=== PATIENT | male | born 1990 | race Caucasian/White ===

== ENCOUNTER 2018-09-29 12:12 | Emergency (ER) | payer BC ==
[2018-09-29] MEDS ORDERED: NS 0.9% 1000 ML** 1,000 ML IV ONE (12:28)
[2018-09-29 12:52] LABS: ABS Eosinophils 0.3 10^3/ul (0-0.6); ABS Lymphocytes 1.7 10^3/ul (1.0-4.8); ABS Monocytes 0.4 10^3/ul (0-0.8); ABS Neutrophils 4.5 10^3/ul (1.5-7.7); Eosinophil % 4.8 %; Hematocrit 46 % (42-52); Hemoglobin 16.2 g/dL (14.0-18.0); Lymphocyte % 24.4 %; Mean Corpuscular HGB Conc 36 g/dL (31-36); Mean Corpuscular Hemoglobin 32 pg (27-31); Mean Corpuscular Volume 91 fL (80-94); Mean Platelet Volume 7.4 fL (7.4-10.4); Platelet Count 275 10^3/uL (150-450); Red Cell Distribution Width 13 % (10-15)
--- NOTE | 2018-09-29 12:59 | ED ---
Substance Abuse/Use - HPI Summary HPI Summary: 28 year old M presenting to [facility] with a chief complaint of blurred vision, light headedness, diaphoresis a few hours ago this morning after injecting cocaine and meth in both arms, drinking alcohol and 2 bottles of dextromethorphan last night. The patient rates the pain 0/10 in severity. Symptoms aggravated by nothing. Symptoms alleviated by nothing. Patient reports swelling in right elbow. Patient denies right arm pain. Patient states his arm usually bruises after injecting drugs. Last night, patient states that the injection was shallow. Patient has Hx substance abuse. He states that he has injected a few times over the last few months but before then, he had been sober for a few years. Patient states he used to inject drugs very often. Patient s now taking Suboxone. Patient states he has access to resources in the community. - History Of Current Complaint Chief Complaint: EDOverdose Stated Complaint: MIGHT HAVE BLOOD CLOT LT ARM PER PT Time Seen by Provider: 09/29/18 12:28 Hx Obtained From: Patient Ingestion History: Type/Name Of Drug - coke, meth, dextromethorphan, alcohol Severity Currently: None Aggravating Factor(s): Nothing Alleviating Factor(s): Nothing Associated Signs And Symptoms: Negative - right arm pain, Diaphoretic, Other: - right elbow swelling - Allergies/Home Medications Allergies/Adverse Reactions: Allergies Allergy/AdvReac Type Severity Reaction Status Date / Time No Known Allergies Allergy Unverified 10/05/12 15:54 Home Medications: Home Medications Buprenorphine HCl/Naloxone HCl [Buprenorp-Nalox 8-2 mg Sl Film] 1.5 film SL DAILY 09/29/18 [History Confirmed 09/29/18] Dextroamphetamine (NF) TAB [Dexedrine TAB*] 10 mg PO DAILY 09/29/18 [History Confirmed 09/29/18] Gabapentin CAP(*) [Neurontin 300 CAP(*)] 300 mg PO TID 09/29/18 [History Confirmed 09/29/18] Lisdexamfetamine Dimesylate [Vyvanse] 30 mg PO DAILY 09/29/18 [History Confirmed 09/29/18] Propranolol TAB* [Inderal TAB*] 10 mg PO BID 09/29/18 [History Confirmed ] PMH/Surg Hx/FS Hx/Imm Hx Endocrine/Hematology History: Denies: Hx Diabetes, Hx Thyroid Disease Cardiovascular History: Denies: Hx Hypertension Respiratory History: Denies: Hx Asthma, Hx Chronic Obstructive Pulmonary Disease (COPD) GI History: Denies: Hx Ulcer History: Denies: Hx Kidney Stones Psychiatric History: Reports: Hx Depression, Hx Substance Abuse - Surgical History Surgery Procedure, Year, and Place: none Infectious Disease History: No Infectious Disease History: Denies: Hx Hepatitis, Hx Human Immunodeficiency Virus (HIV), Traveled Outside the [place] in Last 30 Days - Family History Known Family History: Negative: Blood Disorder - Social History Alcohol Use: None Hx Substance Use: Yes Substance Use Type: Reports: Cocaine Substance Use Comment - Amount & Last Used: dextromethorphan, meth Hx Tobacco Use: Yes Smoking Status (MU): Heavy Every Day Tobacco Smoker Review of Systems Positive: Skin Diaphoresis Positive: Blurred Vision Musculoskeletal: Negative - right arm pain Positive: Other - right elbow swelling Neurological: Other - light headedness Positive: Other - injecting cocaine and meth in both arms, drinking alcohol and 2 bottles of dextromethorphan All Other Systems Reviewed And Are Negative: Yes Physical Exam - Summary Physical Exam Summary: Constitutional: Well-developed, Well-nourished, Alert. (-) Distressed Skin: Diaphoretic, He has track foreman on his bilateral upper extremities and an area of swelling without erythema on his right medial elbow HENT: Normocephalic; Atraumatic Eyes: Conjunctiva normal Neck: Musculoskeletal ROM normal neck. (-) JVD, (-) Stridor Cardio: Rhythm regular, rate normal, Heart sounds normal; Intact distal pulses; Radial pulses are 2+ and symmetric. (-) Murmur Pulmonary/Chest wall: Effort normal. (-) Respiratory distress, (-) Wheezes, (-) Rales Abd: Soft, (-) tenderness, (-) Distension, (-) Guarding, (-) Rebound Musculoskeletal: (-) Edema Lymph: (-) Cervical adenopathy Neuro: Alert, Oriented x3 Psych: Mood and affect Normal Triage Information Reviewed: Yes Vital Signs On Initial Exam: Initial Vitals Temp Pulse Resp BP Pulse Ox 98 F 98 22 118/81 88 09/29/18 12:16 09/29/18 12:16 09/29/18 12:16 09/29/18 12:16 09/29/18 12:16 Vital Signs Reviewed: Yes Diagnostics - Vital Signs Vital Signs Temp Pulse Resp BP Pulse Ox 09/29/18 12:52 87 10 135/71 100 09/29/18 12:33 93 8 129/86 99 09/29/18 12:22 98 118/81 95 09/29/18 12:16 98 F 98 22 118/81 88 - Laboratory Lab Results: Lab Results 09/29/18 Range/Units 12:36 WBC 7.0 (3.5-10.8) 10^3/uL RBC 5.00 (4.18-5.48) 10^6 /uL Hgb 16.2 (14.0-18.0) g/dL Hct 46 (42-52) % MCV 91 (80-94) fL MCH 32 H (27-31) pg MCHC 36 (31-36) g/dL RDW 13 (10-15) % Plt Count 275 (150-450) 10^3/uL MPV 7.4 (7.4-10.4) fL Neut % (Auto) 64.1 % Lymph % (Auto) 24.4 % [place] % (Auto) 6.4 % Eos % (Auto) 4.8 % Baso % (Auto) 0.3 % Absolute Neuts (auto) 4.5 (1.5-7.7) 10^3/ul Absolute Lymphs (auto) 1.7 (1.0-4.8) 10^3/ul Absolute Monos (auto) 0.4 (0-0.8) 10^3/ul Absolute Eos (auto) 0.3 (0-0.6) 10^3/ul Absolute Basos (auto) 0.0 (0-0.2) 10^3/ul Absolute Nucleated RBC 0.0 10^3/ul Nucleated RBC % 0.0 Result Diagrams: 09/29/18 12:36 09/29/18 12:36 Lab Statement: Any lab studies that have been ordered have been reviewed, and results considered in the medical decision making process. - EKG 1229 Cardiac Rate: NL - 94 BPM EKG Rhythm: Sinus Rhythm Summary of EKG Findings: An EKG at 12:29 reveals normal sinus rhythm 94 BPM, nml axis, nml intervals. No STEMI. No acute changes. Course/Dx - Course Course Of Treatment: 28 y/o male w substance use d/o p/w ingestion. - VSS NAD, diaphoretic on arrival. - PE with mild swelling near injection site distal to R elbow but no erythema or fluctuance. Patient states he thinks he missed the vein 2/2 shallow injection. does not appear infected at this time, given return precautions for cellulitis/abscess. - labs unremarkable, feels better after IVF. - ambulated, no e/o intoxication on discharge - Diagnoses Provider Diagnoses: Substance use disorder Discharge - Sign-Out/Discharge Documenting (check all that apply): Patient Departure - Discharge Patient Received Moderate/Deep Sedation with Procedure: No - Discharge Plan Condition: Stable Disposition: HOME Patient Education Materials: Polysubstance Abuse (ED) Referrals: Filipe Boss MD [Primary Care Provider] - 2 Days Additional Instructions: Follow up with your primary care provider in 2 days. Return to the Emergency Department for new or worsening symptoms such as redness and/or swelling of your right elbow, and/or drainage and/or pus. - Billing Disposition and Condition Condition: STABLE Disposition: Home - Attestation Statements Document Initiated by Scribe: Yes Documenting Scribe: Johana Kidd Provider For Whom Scribe is Documenting (Include Credential): Jessica Casanova MD Scribe Attestation: IJohana, scribed for Jessica Casanova MD on 09/29/18 at 1408. Scribe Documentation Reviewed: Yes Provider Attestation: The documentation as recorded by the scribeJohana accurately reflects the service I personally performed and the decisions made by Jessica adan MD Status of Scribe Document: Viewed
[2018-09-29 13:05] LABS: ALT 15 U/L (7-52); AST 22 U/L (13-39); Albumin 5.4 g/dL (3.2-5.2); Albumin/Globulin Ratio 1.9 (1-3); Alkaline Phosphatase 95 U/L (34-104); Anion Gap 11 mmol/L (2-11); BUN/Creatinine Ratio 14.4 (8-20); Blood Urea Nitrogen 16 mg/dL (6-24); CO2 Carbon Dioxide 27 mmol/L (22-32); Calcium 10.4 mg/dL (8.6-10.3); Chloride 101 mmol/L (101-111); EGFR African American 96.9 (>60); EGFR Non-African American 80.1 (>60); Globulin 2.8 g/dL (2-4); Glucose 136 mg/dL (70-100); Potassium 3.6 mmol/L (3.5-5.0); Sodium 139 mmol/L (135-145); Total Protein 8.2 g/dL (6.4-8.9)
[2018-09-29 13:33] LABS: Acetaminophen < 15 mcg/mL; Alcohol < 10 mg/dL (<10); Salicylate < 2.50 mg/dL (<30)
[2018-09-29 14:04] VITALS: BP 126/91
== END 2018-09-29 14:04 | disposition home or self-care (01) ==
LOC: ED 12:12
DX: F19.10 Other psychoactive substance abuse, uncomplicated (principal); F17.210 Nicotine dependence, cigarettes, uncomplicated; Z79.899 Other long term (current) drug therapy
CPT/HCPCS: 36415; 80053; 80320; 80329; 85025; 93005; 96360; 99283; G0480

== ENCOUNTER 2019-02-08 04:35 | Emergency (ER) | payer BC ==
--- NOTE | 2019-02-08 05:09 | ED ---
HPI Chest Pain - HPI Summary HPI Summary: The patient is a 28 y/o M presenting to [facility] with a chief complaint of left- sided CP onset at 0200 this morning after driving home from a friends house. He reports that he was at a friends house yesterday doing yard work and afterwards he had a slight discomfort in the chest that lasted for approximately a minute. He left his friends house around 0100 this morning and had another episode of CP described as a left-sided squeezing as if there was a hand squeezing his heart. This pain radiated into the neck and lasted for almost an hour until taking Aspirin and Propranolol. He states left arm numbness and tingling. He is not currently in any pain. He drank alcohol on and felt hungover yesterday morning. He endorses anxiety. PMHx: anxiety, depression, substance abuse. Heavy every day smoker, no EtOH, history of polysubstance abuse with Vyvanse last used a few days ago. Medications reviewed. Allergies noted. - History of Current Complaint Chief Complaint: EDChestPainROMI Time Seen by Provider: 02/08/19 04:58 Hx Obtained From: Patient Onset/Duration: Started Hours Ago - 0200, Still Present Timing: Lasting Minutes Initial Severity: Moderate Current Severity: None Pain Intensity: 0 Pain Scale Used: 0-10 Numeric Chest Pain Location: Left Anterior Chest Pain Radiates: Yes Chest Pain Radiates To:: Neck Character: Pressure/Squeezing Aggravating Factor(s): Nothing Alleviating Factor(s): Other: - ASA, Propanolol Associated Signs and Symptoms: Positive: Chest Pain - radiating into neck, Anxiety, Numbness - left arm - Allergy/Home Medications Allergies/Adverse Reactions: Allergies Allergy/AdvReac Type Severity Reaction Status Date / Time No Known Allergies Allergy Unverified 02/08/19 04:43 PMH/Surg Hx/FS Hx/Imm Hx Endocrine/Hematology History: Denies: Hx Diabetes, Hx Thyroid Disease Cardiovascular History: Denies: Hx Hypertension Respiratory History: Denies: Hx Asthma, Hx Chronic Obstructive Pulmonary Disease (COPD) GI History: Denies: Hx Ulcer History: Denies: Hx Kidney Stones Psychiatric History: Reports: Hx Anxiety, Hx Depression, Hx Substance Abuse - Surgical History Surgical History: None Surgery Procedure, Year, and Place: none Infectious Disease History: No Infectious Disease History: Denies: Hx Hepatitis, Hx Human Immunodeficiency Virus (HIV), Traveled Outside the [place] in Last 30 Days - Family History Known Family History: Negative: Diabetes, Blood Disorder - Social History Alcohol Use: None Hx Substance Use: Yes Substance Use Type: Reports: Cocaine, Other - dextromethorphan, meth Substance Use Comment - Amount & Last Used: Vivance last used a few days ago Hx Tobacco Use: Yes Smoking Status (MU): Heavy Every Day Tobacco Smoker Review of Systems Positive: Chest Pain - left anterior squeeze "hand clenched" Positive: Other - neck pain radiating from chest Positive: Numbness - left arm Positive: Anxious All Other Systems Reviewed And Are Negative: Yes Physical Exam - Summary Physical Exam Summary: Appearance: Well-appearing, Well-nourished, lying in bed comfortably Skin: Warm, dry, no obvious rash Eyes: sclera anicteric, no conjunctival pallor ENT: mucous membranes moist, pharynx appears normal Neck: Supple, nontender Respiratory: Clear to auscultation, no signs of respiratory distress Cardiovascular: Normal S1, S2. No murmurs. Normal distal pulses in tibial and radial bilaterally. Abdomen: Soft, nontender, normal active bowel sounds present Musculoskeletal: Normal, Strength/ROM Intact Neurological: A&Ox3, awake and alert, mentation is normal, speech is fluent and appropriate Psychiatric: affect is normal, does not appear anxious or depressed Triage Information Reviewed: Yes Vital Signs On Initial Exam: Initial Vitals Temp Pulse Resp BP Pulse Ox 97.7 F 87 15 157/102 99 02/08/19 04:41 02/08/19 04:41 02/08/19 04:41 02/08/19 04:41 02/08/19 04:41 Vital Signs Reviewed: Yes Procedures - Sedation Patient Received Moderate/Deep Sedation with Procedure: No Diagnostics - Vital Signs Vital Signs Temp Pulse Resp BP Pulse Ox 02/08/19 04:41 97.7 F 87 15 157/102 99 - Laboratory Lab Statement: Any lab studies that have been ordered have been reviewed, and results considered in the medical decision making process. - EKG 0438 Cardiac Rate: NL - 60 BPM EKG Rhythm: Sinus Rhythm Summary of EKG Findings: NSR at 60 BPM, P waves, QRS complex, and T waves are within normal limits, T waves and intervals are normal, no ischemic changes. This is a normal EKG. ED physician has reviewed and interpreted this EKG. Chest Pain Course/Dx - Course Course Of Treatment: Patient is a 28 y/o M with chief complaint of a mild episode of chest discomfort yesterday afternoon and a more severe episode this morning around 0200 in the left anterior chest described as a squeezing sensation. Relieved with Aspirin and Propranolol. Physical exam is negative for acute abnormalities. EKG at 0438 reveals NSR at 60 BPM without acute changes. I do not suspect that the chest pain is of cardiac origin since he also states anxiety at this time and also chronically. We discussed all findings and plan for discharge. He understands and agrees with this plan. Dx of noncardiac chest pain. - Diagnoses Provider Diagnoses: Non-cardiac chest pain Discharge ED - Sign-Out/Discharge Documenting (check all that apply): Patient Departure - Patient will be discharged home. - Discharge Plan Condition: Good Disposition: HOME Patient Education Materials: Noncardiac Chest Pain (ED) Forms: *Work Release Referrals: Filipe Boss MD [Primary Care Provider] - If Needed - Billing Disposition and Condition Condition: GOOD Disposition: Home - Attestation Statements Document Initiated by Kathryn: Yes Documenting Scribe: Kerri Kevin Provider For Whom Kathryn is Documenting (Include Credential): Dr. Groan Romero MD Scribe Attestation: Kerri Campos scribed for Dr. Goran Romero MD on 02/08/19 at 0558. Scribe Documentation Reviewed: Yes Provider Attestation: The documentation as recorded by the Kerri vázquez accurately reflects the service I personally performed and the decisions made by me, Dr. Goran Romero MD Status of Scribe Document: Viewed
[2019-02-08 05:19] VITALS: BP 136/90
== END 2019-02-08 05:15 | disposition home or self-care (01) ==
LOC: ED 04:35
DX: R07.89 Other chest pain (principal); F41.9 Anxiety disorder, unspecified; F32.9 Major depressive disorder, single episode, unspecified; F17.200 Nicotine dependence, unspecified, uncomplicated
CPT/HCPCS: 93005; 99282

== ENCOUNTER 2019-05-20 08:17 | Emergency (ER) | payer BC ==
[2019-05-20 08:52] VITALS: BP 138/81
--- NOTE | 2019-05-20 09:01 | UC ---
Cardiac HPI - HPI Summary HPI Summary: 28-year-old male comes in with chief complaint of left-sided chest pain. He woke this morning feeling pressure in the left side of his chest going into his left neck. Denies any shortness of breath with it or nausea. No fevers or chills. The last time he used IV drugs was approximately 2 weeks ago. Patient reports she's had symptoms like this in the past and gets better with aspirin. He did take aspirin today and his symptoms have improved. Said his left neck felt swollen. Denied any crepitus and he pushed on it. Yesterday he was able to exercise vigorously without any chest pain or shortness of breath. - History of Current Complaint Chief Complaint: UCChestPain Stated Complaint: CHEST PRESSURE,NECK SWELLING Time Seen by Provider: 05/20/19 08:36 Pain Intensity: 4 - Allergy/Home Medications Allergies/Adverse Reactions: Allergies Allergy/AdvReac Type Severity Reaction Status Date / Time No Known Allergies Allergy Unverified 05/20/19 08:44 Home Medications: Home Medications Buprenorphine HCl/Naloxone HCl [Buprenorp-Nalox 8-2 mg Sl Film] 1.5 film SL DAILY 09/29/18 [History Confirmed 05/20/19] LORazepam TAB(*) [Ativan 1 MG TAB (*)] 1 tab PO BID 05/20/19 [History Confirmed 05/20/19] PMH/Surg Hx/FS Hx/Imm Hx Previously Healthy: Yes - IV drug user - Surgical History Surgical History: None Surgery Procedure, Year, and Place: none - Family History Known Family History: Negative: Diabetes, Blood Disorder - Social History Alcohol Use: None Substance Use Type: Cocaine, Synthetic Drugs, Prescribed, Sedatives, Other Substance Use Comment - Amount & Last Used: Meth Smoking Status (MU): Heavy Every Day Tobacco Smoker Review of Systems All Other Systems Reviewed And Are Negative: Yes Constitutional: Positive: Other - see hpi Skin: Positive: Negative Eyes: Positive: Negative ENT: Positive: Negative Respiratory: Positive: Negative Cardiovascular: Positive: Other - see hpi Gastrointestinal: Positive: Negative Motor: Positive: Negative Neurovascular: Positive: Negative Musculoskeletal: Positive: Negative Neurological/Mental Status: Positive: Negative Psychological: Positive: Negative Is Patient Immunocompromised?: No Physical Exam Triage Information Reviewed: Yes Appearance: Well-Appearing, No Pain Distress, Well-Nourished Vital Signs: Initial Vital Signs Temp 98.4 F 05/20/19 08:48 Pulse 84 05/20/19 08:48 Resp 18 05/20/19 08:48 BP 138/81 05/20/19 08:48 Pulse Ox 99 05/20/19 08:48 Vital Signs Reviewed: Yes Eye Exam: Normal Eyes: Positive: Conjunctiva Clear ENT: Positive: Pharynx normal, TMs normal Neck: Positive: Supple, Nontender, Other: - On palpation I did not appreciate any asymmetry or crepitus in the neck. No tenderness on palpation of the neck. Respiratory: Positive: Lungs clear, Normal breath sounds, No respiratory distress Cardiovascular: Positive: RRR, No Murmur Musculoskeletal: Positive: Strength Intact, ROM Intact, No Edema - No calf tenderness to palpation. Neurological: Positive: Alert, Muscle Tone Normal Psychological: Positive: Age Appropriate Behavior Skin Exam: Normal Diagnostics - EKG Cardiac Rate: NL - AT 0832 Cardiac Rhythm: Sinus: Normal - 72BPM Ectopy: None EKG Comparison: Other - ST elevation. Probable normal early repolarization pattern. - Assessment/Plan Course Of Treatment: Patient's vital signs are stable. He has no fever. I discussed the EKG with the patient. Today's EKG is very similar to his EKG in September 2018 with early repolarization. Patient took aspirin this morning and that has improved his symptoms. He reports that yesterday he was able to row 15 km on the rowing machine without any shortness of breath. Patient reports she's had similar symptoms in the past and that got better with aspirin. We discussed the signs and symptoms of cardiac causes of chest pain to include pericarditis and infected valves. At this time the patient's improved he has no fever and with his ability to exercise it's unlikely that he has a pericarditis we discussed going to the emergency Department to get evaluation for cardiac causes of his pain. At this time the patient prefers to have some blood work checked here and follow-up his primary care doctor. CBC and CRP were drawn. We also discussed that if his symptoms do not improve or if they get worse he is to go directly to the emergency department. - Clinical Impression Provider Diagnosis: Left chest pressure Discharge ED - Sign-Out/Discharge Documenting (check all that apply): Patient Departure All imaging exams completed and their final reports reviewed: No Studies - Discharge Plan Condition: Stable Disposition: HOME Patient Education Materials: Chest Pain (ED) Forms: *Work Release Referrals: Filipe Boss MD [Primary Care Provider] - Additional Instructions: FOLLOW UP WITH YOUR DOCTOR. GO TO THE EMERGENCY DEPARTMENT IF NOT IMPROVED OR WORSE; CHEST PAIN, FEVER, SHORTNESS OF BREATH, YOU FEEL ILL OR ANY QUESTIONS OR CONCERNS. - Billing Disposition and Condition Condition: STABLE Disposition: Home
[2019-05-20 12:51] LABS: ABS Eosinophils 0.2 10^3/ul (0-0.6); ABS Lymphocytes 0.8 10^3/ul (1.0-4.8); ABS Monocytes 0.4 10^3/ul (0-0.8); ABS Neutrophils 1.9 10^3/ul (1.5-7.7); Hematocrit 43 % (42-52); Hemoglobin 15.2 g/dL (14.0-18.0); Lymphocyte % 25.2 %; Mean Corpuscular HGB Conc 35 g/dL (31-36); Mean Corpuscular Hemoglobin 33 pg (27-31); Mean Corpuscular Volume 93 fL (80-94); Mean Platelet Volume 7.8 fL (7.4-10.4); Nucleated Red Blood Cells % 0.1; Platelet Count 192 10^3/uL (150-450); Red Blood Count 4.65 10^6 /uL (4.18-5.48); Red Cell Distribution Width 13 % (10-15); White Blood Count 3.3 10^3/uL (3.5-10.8)
--- NOTE | 2019-05-21 13:10 | UC ---
- Progress Note Progress Note: PLS CALL PT. LABS REVIEWED. CBC WITH SLIGHTLY LOW WBC COUNT. CRP NORMAL. NO ACUTE CHANGE IN MANAGEMENT. FOLLOW-UP WITH PCP. Course/Dx - Diagnoses Provider Diagnoses: Left chest pressure Discharge ED - Sign-Out/Discharge Documenting (check all that apply): Post-Discharge Follow Up All imaging exams completed and their final reports reviewed: No Studies - Discharge Plan Condition: Stable Disposition: HOME Patient Education Materials: Chest Pain (ED) Forms: *Work Release Referrals: Filipe Boss MD [Primary Care Provider] - Additional Instructions: FOLLOW UP WITH YOUR DOCTOR. GO TO THE EMERGENCY DEPARTMENT IF NOT IMPROVED OR WORSE; CHEST PAIN, FEVER, SHORTNESS OF BREATH, YOU FEEL ILL OR ANY QUESTIONS OR CONCERNS. - Billing Disposition and Condition Condition: STABLE Disposition: Home
== END 2019-05-20 09:50 | disposition home or self-care (01) ==
LOC: UCEAST 08:17
DX: R07.89 Other chest pain (principal); F17.290 Nicotine dependence, other tobacco product, uncomplicated
CPT/HCPCS: 36415; 85025; 86140; 93005